=== PATIENT | female | born 1990 | race African-American/Black ===

== ENCOUNTER 2019-02-10 19:05 | Emergency (ER) | payer SELFPAY | END 2019-02-10 21:30 | disposition home or self-care (01) | LOC: ERS 19:05 | DX: J11.1 Influenza due to unidentified influenza virus with other respiratory manifestations (principal); K02.9 Dental caries, unspecified | CPT/HCPCS: 87081; 87430; 87804; 99283 ==

== ENCOUNTER 2020-09-16 18:29 | Emergency (ER) | payer BC, MEDICAID | END 2020-09-16 20:22 | disposition home or self-care (01) | LOC: ERS 18:29 | DX: J06.9 Acute upper respiratory infection, unspecified (principal) | CPT/HCPCS: 99283 ==

== ENCOUNTER 2021-08-07 18:47 | Emergency (ER) | payer OTHER ==
[2021-08-07] MEDS ORDERED: HYDROcodone/Acetaminophen 5/325 mg Tablet ONE (19:09)
== END 2021-08-07 20:03 ==
LOC: ERS 18:47
DX: S20.219A Contusion of unspecified front wall of thorax, initial encounter (principal); V43.52XA Car driver injured in collision with other type car in traffic accident, initial encounter; Y92.410 Unspecified street and highway as the place of occurrence of the external cause
CPT/HCPCS: 71045; 93005

== ENCOUNTER 2021-11-02 06:36 | Emergency (ER) | payer OTHER ==
[2021-11-02] MEDS ORDERED: Acetaminophen 500 MG TAB ONE (07:07)
[2021-11-02] MEDS ORDERED: Ketorolac Tromethamine 30 MG/ML VIAL ONE (07:16)
[2021-11-02 07:42] LABS: Bacteria/HPF None Seen HPF (None Seen); Bilirubin Negative (Negative); Blood, Urine Negative (Negative); Clarity Clear (Clear); Glucose, Urine (Dipstick) Normal (Negative); Ketone, Urine Negative (Negative); Leukocyte Negative Leu/uL (Negative); Nitrite Negative (Negative); Protein, Urine (Dipstick) 70 mg/dL (Neg-Trace); RBC/HPF 0-3 HPF (0-3); Specific Gravity, Urine 1.023 (1.002-1.036); Squamous Epithelial 0-3 HPF (0-3); Urobilinogen Normal mg/dL (Less than 2); WBC/HPF 0-3 HPF (0-3); pH, Urine 5.5 (5.0-9.0)
[2021-11-02 07:44] LABS: Pregnancy Test - Urine (BHCG) Negative (Negative); Pregu Control Background? CLEAR/WHITE (CLR/WHITE); Pregu Control Bar Appear? YES (CONTROL BAR); Specific Gravity 1.023 (1.002-1.036)
== END 2021-11-02 08:05 | disposition home or self-care (01) ==
LOC: ERS 06:36
DX: M54.50 Low back pain, unspecified (principal); R53.83 Other fatigue; M79.10 Myalgia, unspecified site
CPT/HCPCS: 81003; 81015; 81025; 87086; 96372; 99283; J1885